=== PATIENT | male | born 1970 | race Caucasian/White ===

== ENCOUNTER → 2019-06-14 08:40 | Outpatient (CLI) | payer OTHER ==
[~2019-06-14 08:40] MED LIST: ALBUTEROL2.5 MG/3 M IH
== END | disposition home or self-care (01) ==
LOC: LAB 08:40
DX: R51 Headache (principal); R09.81 Nasal congestion; J30.89 Other allergic rhinitis; H65.192 Other acute nonsuppurative otitis media, left ear; Z13.89 Encounter for screening for other disorder; Z13.220 Encounter for screening for lipoid disorders; Z11.3 Encounter for screening for infections with a predominantly sexual mode of transmission; R06.02 Shortness of breath

== ENCOUNTER 2025-06-25 07:15 | Emergency (ER) | payer OTHER ==
[~2025-06-25] VITALS: Ht 167.6 cm; Wt 77.1 kg
[2025-06-25 08:59] LABS: BASO % 0.8 % (0.1-1.2); EOS # 0.26 (0.04-0.54); EOS % 2.2 % (0.7-7.0); LYMPH # 1.62 (1.18-3.74); LYMPH % 13.8 % (19.3-53.1); MEAN PLATELET VOLUME 9.80 fl (9.4-12.4); MONO # 0.76 (0.24-0.82); MONO % 6.5 % (4.7-12.5); NEUT # 8.97 (1.56-6.13); NEUT % 76.4 % (34.0-71.1); RED CELL DISTRIBUTION WIDTH 12.3 % (11.6-14.4)
[2025-06-25 09:16] LABS: URINE APPEARANCE Clear; URINE BILIRRUBIN Negative (NEGATIVE); URINE BLOOD Moderate; URINE COLOR Yellow; URINE KETONE Trace (NEGATIVE); URINE LEUKOCYTE Negative; URINE NITRATE Negative; URINE PROTEIN Negative (NEGATIVE); URINE UROBILINOGEN 0.2 E.U./dl
[2025-06-25 09:20] LABS: URINE BACTERIA 5.9 uL (0.0-1933); URINE RBC 16.1 uL (0.0-20.8)
[2025-06-25 09:22] LABS: URINE CAST 0.29 uL (0.0-1.40); URINE EPITHELIAL CELLS 0.7 uL (0.0-38.8); URINE GLUCOSE >=1000 MG/DL (NEGATIVE); URINE WBC 1.0 uL (0.0-23.2)
[2025-06-25 09:23] LABS: ALT/SGPT 22.0 U/L (12-78); AST/SGOT 15.0 U/L (15-37); BILIRUBIN TOTAL 0.95 mg/dL (0.3-1.2); BUN CREA RATIO 8.0 (7.0-25.0); CREATININE SERUM 1.36 mg/dL (0.70-1.30); GFR 54.81; GLOBULINA 4.3 G/DL (2.4-3.5); GLUCOSE FASTING 183.0 mg/dL (65-100); OSMOLALITY SERUM 283.0 MOSM/KG (275-295)
[2025-06-25] MEDS ORDERED: CEFTRIAXONE SODIUM 1,000 MG VIAL IM ONE (10:45)
== END 2025-06-25 08:19 | disposition left against medical advice (07) ==
LOC: ER 07:15
PROVIDERS: Preventive Medicine Public Health & General Preventive Medicine
DX: R30.0 Dysuria (principal)

== ENCOUNTER 2025-09-10 13:45 | Emergency (ER) | payer OTHER ==
[~2025-09-10] VITALS: Ht 167.6 cm; Wt 81.6 kg
[2025-09-10 14:52] VITALS: BP 167/65; O2SAT 94
[2025-09-10] MEDS ORDERED: BENZONATATE 200 MG CAPSULE PO ONE (15:45)
[2025-09-10] MEDS ORDERED: CEFTRIAXONE SODIUM 1,000 MG VIAL IV ONE (15:45)
[2025-09-10] MEDS ORDERED: LEVALBUTEROL HCL 1.25 MG/3 ML SOLUTION IH SCH (15:45)
[2025-09-10] MEDS ORDERED: METHYLPREDNISOLONE SOD SUCC 125 MG VIAL IV ONE (15:45)
[2025-09-10] MEDS ORDERED: MAGNESIUM SULFATE IN WATER 50 ML IV ONE (15:45)
[2025-09-10] MEDS ORDERED: METHYLPREDNISOLONE SOD SUCC 125 MG VIAL ONE (15:48)
[2025-09-10] MEDS ORDERED: MAGNESIUM SULFATE 50% 1,000 MG/2 ML VIAL ONE (15:48)
[2025-09-10] MEDS ORDERED: CEFTRIAXONE SODIUM 1,000 MG VIAL ONE (15:49)
[2025-09-10 16:24] LABS: BASO % 0.9 % (0.1-1.2); EOS # 0.65 (0.04-0.54); EOS % 8.3 % (0.7-7.0); LYMPH # 2.52 (1.18-3.74); LYMPH % 32.0 % (19.3-53.1); MEAN PLATELET VOLUME 9.90 fl (9.4-12.4); MONO # 0.87 (0.24-0.82); MONO % 11.1 % (4.7-12.5); NEUT # 3.73 (1.56-6.13); NEUT % 47.3 % (34.0-71.1); RED CELL DISTRIBUTION WIDTH 12.4 % (11.6-14.4)
[2025-09-10 16:32] LABS: COVID-19 AG NEGATIVE (NEGATIVE)
[2025-09-10 16:57] LABS: ALT/SGPT 27.0 U/L (12-78); AST/SGOT 12.0 U/L (15-37); BILIRUBIN TOTAL 0.56 mg/dL (0.3-1.2); BUN CREA RATIO 11.0 (7.0-25.0); CREATININE SERUM 1.21 mg/dL (0.70-1.30); GFR 62.73; GLOBULINA 4.2 G/DL (2.4-3.5); GLUCOSE FASTING 140.0 mg/dL (65-100); OSMOLALITY SERUM 286.0 MOSM/KG (275-295)
[2025-09-10] MEDS ORDERED: IPRATROPIUM BROMIDE 0.5 MG/2.5 ML AMPUL.NEB IH SCH (17:00)
[2025-09-10] MEDS ORDERED: IPRATROPIUM BROMIDE 0.5 MG/2.5 ML AMPUL.NEB IH ONE (17:06)
[2025-09-10] MEDS ORDERED: LEVALBUTEROL HCL 0.63 MG/3 ML SOLUTION IH ONE (17:06)
[2025-09-10] MEDS ORDERED: AZITHROMYCIN500 MG PO (18:22)
[2025-09-10] MEDS ORDERED: MEDROLPACK PO (18:22)
[2025-09-10] MEDS ORDERED: SINGULAIR10 MG PO (18:22)
[2025-09-10] MEDS ORDERED: PEPCID AC20 MG PO (18:22)
[2025-09-10] MEDS ORDERED: LEVALBUTER0.63 MG/3 IH (18:22)
== END 2025-09-10 18:47 | disposition home or self-care (01) ==
LOC: ER 13:45
PROVIDERS: General Practice
DX: J45.909 Unspecified asthma, uncomplicated (principal); Z20.822 Contact with and (suspected) exposure to COVID-19